=== PATIENT | female | born 1980 | race Asian ===

== ENCOUNTER 2020-02-03 00:26 | Emergency (ER) | payer OTHER ==
[~2020-02-03] VITALS: Ht 165.1 cm; Wt 80.9 kg
[2020-02-03] MEDS ORDERED: FERR-89 PO (00:32)
[2020-02-03] MEDS ORDERED: ATOR20TA86 PO (00:32)
[2020-02-03] MEDS ORDERED: ONDANSETRON HCL 4 MG TABLET PO ONE (01:00)
[2020-02-03] MEDS ORDERED: FAMOTIDINE 20 MG TABLET PO ONE (01:00)
[2020-02-03] MEDS ORDERED: PB/HYOSCY/ATR/SCOP/LIDO/MAALOX 55 ML BOTTLE PO ONE (01:00)
[2020-02-03 01:25] LABS: BASOPHILS % (AUTO) 0.2 % (0.0-2.0); EOSINOPHILS % (AUTO) 1.3 % (1.0-6.0); HEMATOCRIT 38.6 % (36-46); HEMOGLOBIN 12.3 g/dL (12.0-16.0); LYMPHOCYTES # (AUTO) 0.6 K/uL (1.0-4.8); LYMPHOCYTES % (AUTO) 5.2 % (22.0-44.0); MEAN CORPUSCULAR HEMOGLOBIN 25.1 pg (26.0-34.0); MEAN CORPUSCULAR HGB CONC 31.9 G/dL (31.0-37.0); MEAN CORPUSCULAR VOLUME 79 fL (80-100); MONOCYTES # (AUTO) 0.8 K/uL (0.1-1.0); MONOCYTES % (AUTO) 6.2 % (2.0-9.0); NEUTROPHILS # (AUTO) 10.7 K/uL (1.8-7.7); PLATELET COUNT (AUTO) 297 K/uL (150-450); RED BLOOD CELL COUNT(AUTO) 4.91 MIL/uL (4.00-5.20); RED CELL DISTRIBUTION WIDTH 17.4 % (11.5-14.5)
[2020-02-03 01:29] LABS: NEUTROPHILS % (AUTO) 87.1 % (40.0-70.0)
[2020-02-03 01:39] LABS: ANION GAP 15 mmol/L (8-16); CALCIUM, TOTAL 8.9 mg/dL (8.8-10.5); CARBON DIOXIDE 21 mmol/L (22-29); CHLORIDE 103 mmol/L (98-107); CREATININE 0.79 mg/dL (0.60-1.30); GLOMERULAR FILTR. RATE CALC > 60 mL/min (>60); GLUCOSE,RANDOM 115 mg/dL (70-110); POTASSIUM 3.2 mmol/L (3.5-5.1); SODIUM SERUM 139 mmol/L (136-145); UREA NITROGEN, BLOOD 14 mg/dL (7-18)
[2020-02-03 01:46] LABS: ALANINE AMINOTRANSFERASE 43 U/L (12-78); ALBUMIN 3.9 g/dL (3.4-5.0); ALKALINE PHOSPHATASE 76 U/L (46-116); ASPARTATE AMINOTRANSFERASE 35 U/L (15-37); BILIRUBIN,TOTAL 0.2 mg/dL (0.1-1.0); LIPASE 133 U/L (73-393); TOTAL PROTEIN, SERUM 8.3 g/dL (6.4-8.2)
[2020-02-03 02:03] LABS: HCG,QUANTITATIVE < 1 mIU/mL (0-6)
[2020-02-03] MEDS ORDERED: SODIUM CHLORIDE 0.9% 100 ML ONE (02:10)
[2020-02-03] MEDS ORDERED: IOVERSOL 350 MG/ML 100 ML VIAL ONE (02:10)
[2020-02-03] MEDS ORDERED: POTASSIUM CHLORIDE 20 MEQ ER TABLET PO ONE (02:15)
[2020-02-03 02:19] LABS: APPEARANCE,URINE TURBID (CLEAR); GLUCOSE, URINE (UA) NEGATIVE (NEGATIVE); KETONES,URINE 15 mg/dL (NEGATIVE); LEUKOCYTE ESTERASE ,URINE MODERATE (NEGATIVE); NITRATE,URINE NEGATIVE (NEGATIVE); OCCULT BLOOD,URINE LARGE (NEGATIVE); PROTEIN,URINE SEE CONFIRM (NEGATIVE)
[2020-02-03 02:21] LABS: BILIRUBIN,URINE PRELIM. POSITIVE (NEGATIVE)
[2020-02-03 02:29] LABS: SULFOSALICYLIC ACID,URINE 3+ (Negative)
[2020-02-03 02:31] LABS: BACTERIA,URINE Many /HPF (None Seen); RBC,URINE Full Field /HPF (0-2)
[2020-02-03 02:45] VITALS: BP 133/79
[2020-02-03] MEDS ORDERED: NITROFURANTOIN/NITROFURAN MAC 100 MG CAPSULE [MACROBID] PO ONE (04:00)
== END 2020-02-03 04:11 | disposition home or self-care (01) ==
LOC: EMS 00:26
DX: K52.9 Noninfective gastroenteritis and colitis, unspecified (principal); N39.0 Urinary tract infection, site not specified; E78.00 Pure hypercholesterolemia, unspecified; Z88.1 Allergy status to other antibiotic agents
CPT/HCPCS: 36415; 74177; 80053; 81001; 83690; 84702; 85025; 87086; 99285; J7050; Q0162; Q9967